=== PATIENT | male | born 1995 ===

== ENCOUNTER 2017-02-20 12:09 | Emergency (ER) | payer SELFPAY ==
[2017-02-20] MEDS ORDERED: Ketorolac Tromethamine 30 MG/ML VIAL ONE (12:18)
--- NOTE | 2017-02-20 12:44 | RAD ---
FOUR VIEWS OF THE RIGHT KNEE: COMPARISON: None. HISTORY: [place] accident with right knee pain. FINDINGS: Four views of the right knee show no evidence of acute fracture or dislocation. No degenerative yudi nges are seen. No knee effusion is present. IMPRESSION: Unremarkable exam. POS: [facility]
== END 2017-02-20 13:00 | disposition home or self-care (01) ==
LOC: ERS 12:09
DX: M25.561 Pain in right knee (principal); I10 Essential (primary) hypertension; F17.200 Nicotine dependence, unspecified, uncomplicated; Z79.899 Other long term (current) drug therapy
CPT/HCPCS: 96372; J1885